=== PATIENT | female | born 1960 | race Caucasian/White ===

== ENCOUNTER 2017-07-23 14:18 | Emergency (ER) | payer BC ==
[~2017-07-23 14:18] MED LIST: Iopamidol 370 76% 100 ML VIAL ONE
[2017-07-23 15:02] LABS: Bilirubin Negative (Negative); Blood, Urine Moderate (Negative); Clarity Clear (Clear); Glucose, Urine (Dipstick) Negative (Negative); Leukocyte Negative (Negative); Nitrite Negative (Negative); Protein, Urine (Dipstick) Negative (Neg-Trace); Specific Gravity, Urine 1.015 (1.005-1.030); Urobilinogen 0.2 mg/dL (0.2-1.0)
[2017-07-23 15:05] LABS: #Eosinphils 0.2 thou/uL (0.0-0.7); #Lymphocytes 1.8 thou/uL (1.20-3.40); #Monocytes 0.5 thou/uL (0.11-0.59); #Neutrophils 10.9 thou/uL (1.40-6.50); %Basophils 0.2 % (0.0-1.0); %Eosinophils 1.3 % (0.0-10.0); %Lymphocytes 13.3 % (21.0-51.0); %Monocytes 3.4 % (0.0-10.0); %Neutrophils 81.8 % (42.0-75.0); Hemoglobin 12.6 g/dL (12.0-16.0); Mean Corpuscular HGB CONC 36.2 g/dL (32.0-36.0); Mean Corpuscular Volume 91.1 fl (81.0-99.0); Mean Platelet Volume 7.7 fL (7.4-10.4); Platelet Count 231 thou/uL (130-400); RBC Distribution Width 12.1 % (11.5-14.5); Red Blood Cell (RBC) Count 3.81 mill/uL (4.20-5.40); White Blood Cell (WBC) Count 13.4 thou/uL (4.8-10.8)
[2017-07-23 15:18] LABS: Bacteria/HPF None Seen HPF (None Seen); Squamous Epithelial 0-3 HPF (0-3); WBC/HPF 0-3 HPF (0-3)
[2017-07-23 15:22] LABS: ALT (SGPT) 24 U/L (8-55); AST (SGOT) 23 U/L (5-34); Albumin 4.5 g/dL (3.5-5.0); Alkaline Phosphatase 94 U/L (40-150); Anion Gap 15 mmol/L (10-20); BUN (Urea Nitrogen) 20 mg/dL (9.8-20.1); Bilirubin, Total 0.1 mg/dL (0.2-1.2); Calc. Creatinine Clearance 0 mL/min (70-130); Calcium 9.6 mg/dL (7.8-10.44); Carbon Dioxide 22 mmol/L (22-29); Chloride 106 mmol/L (98-107); Estimated GFR-MDRD 68; Globulin 3.2 g/dL (2.4-3.5); Glucose 113 mg/dL (70-105); Potassium 4.1 mmol/L (3.5-5.1); Protein, Total 7.7 g/dL (6.0-8.3); Sodium 139 mmol/L (136-145)
[2017-07-23 15:23] LABS: CKMB 1.4 ng/mL (0-6.6); Troponin I Less than 0.010 ng/mL (< 0.028)
--- NOTE | 2017-07-23 15:46 | CT ---
CT ABDOMEN AND PELVIS WITH AND WITHOUT IV CONTRAST 07/23/17 HISTORY: Bilateral flank pain, abdominal pain. FINDINGS: Each renal collecting system, ureter, and the urinary bladder are decompressed without stone evident. The lung bases are clear. There is calcification within the arterial structures. No evidence of aort ic aneurysm or dissection. The liver, spleen, kidneys, adrenal glands, and pancreas are within normal limits. Lack of oral contr ast limits evaluation of the bowel. There is no evidence of obstruction. Appendix is not inflamed. IMPRESSION: 1. No CT evidence of urinary tract obstruction or calcification. 2. Atherosclerosis. No evidence of abdominal aortic aneurysm or dissection. POS: [facility]
== END 2017-07-23 16:10 | disposition home or self-care (01) ==
LOC: NAV ERS 14:18
DX: R10.9 Unspecified abdominal pain (principal); I10 Essential (primary) hypertension; F32.9 Major depressive disorder, single episode, unspecified
CPT/HCPCS: 74170; 80053; 81003; 81015; 82553; 84484; 85025; 93005